=== PATIENT | female | born 1985 | race Caucasian/White ===

== ENCOUNTER 2020-04-28 00:14 | Outpatient (CLI) | payer BC, SELFPAY ==
[2020-04-28 19:24] LABS: SARS-CoV-2 RNA PCR Negative
== END 2020-04-28 00:15 | disposition home or self-care (01) ==
LOC: ANHCOVIDDT 00:14
PROVIDERS: Visit Provider Obstetrics & Gynecology
DX: Z01.812 Encounter for preprocedural laboratory examination (principal); Z20.828 Contact with and (suspected) exposure to other viral communicable diseases
CPT/HCPCS: 87635; C9803; U0003

== ENCOUNTER 2020-05-01 00:54 | Day surgery (SDC) | payer BC, SELFPAY ==
--- NOTE | 2020-04-25 12:07 | PM.IMHP ---
H&P: HPI History of Present Illness Date/Time: 04/25/20 12:07 Chief complaint: Pelvic Pain Narrative: Dottie Elizondo is a 35 year old female who is admitted for diagnostic laparoscopy. She complains of pelvic pain and painful course for the last 2 years. It seems worse with deeper penetration. She had a baby 16 years ago at her 's had a vasectomy. She is taking continuous control for cycle control but she notes that pain continues. She also has pain after intercourse and following a bowel movement. She underwent ultrasound which showed a retroverted uterus with a couple fibroids. Some free fluid is seen. The ovaries appear within normal limits. Risks and benefits of this procedure reviewed including but not exclusive of , aspiration pneumonia, bleeding, transfusion, perforation injury to bowel, bladder, ureters, or other internal organs with need for open laparotomy. She received the ACOG handout entitled laparoscopy. She had all questions answered. She asked to proceed Review of Systems Review of Systems: All systems reviewed & are unremarkable except as noted in HPI and below PMFSH Social History Social History Gender identity (if verbalized by the patient): Female Meds Home Medications and Allergies Home Medications Medication Instructions Recorded Confirmed Type penicillin V potassium 500 mg PO Q12H 10 Days #20 tablet 07/01/19 Rx Allergies Allergy/AdvReac Type Severity Reaction Status Date / Time No Known Allergies Allergy Verified 07/01/19 15:20 Exam Const: General: no acute distress Eyes: General: appearance normal, both eyes and all related structures Neck: Neck: supple and no JVD Thyroid: thyroid normal Resp: Effort & Inspection: normal respiratory effort Auscultation: clear to auscultation bilaterally Cardio: Rate: regular rate Rhythm: regular rhythm GI: Inspection: non-distended GI Palp: Yes Soft to palpation, No Tenderness to palpation present (GI) and No Guarding due to palpation present (GI) Auscultation: normal bowel sounds : General: Yes bladder normal to inspection Speculum Exam - Vagina: normal appearance of the vagina Speculum Exam - Cervix: normal appearance of the cervix Bimanual exam- vagina & uterus: enlarged ( retroverted and extremely tender) Bimanual Exam- Adnexa, other: tender Skin: General skin exam: no rashes or lesions noted Extrem: General: normal to inspection and no edema Psych: Mental Status: mental status grossly normal Affect: normal affect Assessment and Plan Additional Plan impression: Pelvic pain Plan: Diagnostic laparoscopy
[2020-04-25 15:16] VITALS: BMI 20.5
[2020-05-01] VITALS (7 sets, daily range): BP systolic 102–129; BP diastolic 49–78; PULSE 66–87; RESP 14–29; TEMP 36.5–36.6; O2SAT 100
--- NOTE | 2020-05-01 06:46 | WPDHPUPDATE1 ---
History and Physical Update Update Date/Time: 05/01/20 06:46 History and Physical has been reviewed, including an updated exam of the patient. There are NO changes in the patient's condition. Risks, benefits, and alternatives have been discussed and questions answered. Patient agrees to proceed with procedure.
[2020-05-01] MEDS: LACTATED RINGERS 1,000 ML 30 ML IV CONT ×2 (10:05→12:17)
[2020-05-01] MEDS: KETOROLAC 15 MG/ML VIAL (*BKC) IV PUSH (10:29)
[2020-05-01] MEDS: ACETAMINOPHEN 500 MG TABLET 1000 MG PO (10:29)
[2020-05-01] MEDS: ONDANSETRON INJ 4 MG/2 ML VIAL IV PUSH ×2 (10:30→12:50)
[2020-05-01] MEDS: SCOPOLAMINE 1.5 MG PATCH TRANSDERM (10:30)
--- NOTE | 2020-05-01 11:10 | WPDANESEPPF ---
Anes - Initial Pre Proc Eval Procedure: Operation Date: 05/01/20 11:00 Proposed Procedures p Diagnostic Laparoscopy - Jan Mckeon MD Date/Time: 05/01/20 11:10 Surgeon: Jan Mckeon MD Pre Op Diagnosis: Pelvic Pain Patient Data Age: 35 Gender: F Height: 5 ft 5 in Weight: 56.5 kg Last Vital Signs Temp 36.5 C 05/01/20 09:36 Pulse 70 05/01/20 09:36 Resp 16 05/01/20 09:36 BP 114/49 L 05/01/20 09:36 Pulse Ox 100 05/01/20 09:36 Allergies Allergy/AdvReac Type Severity Reaction Status Date / Time No Known Allergies Allergy Verified 05/01/20 09:43 Home Medications Medication Instructions Recorded Confirmed Type norethindrone-e.estradiol-iron 1 tablet PO QAM 04/25/20 05/01/20 History hydrocodone-acetaminophen [[place]] 1 tablet PO Q4H PRN #30 tablet 05/01/20 Rx Patient hx anesthesia problems: post op nausea/vomiting Family hx anesthesia problems: none PMFSH Past Medical History Medical History (Updated 05/01/20 @ 11:13 by Jan Aguilera MD) Anxiety Surgical History Surgical History (Updated 05/01/20 @ 11:13 by Jan Aguilera MD) H/O breast augmentation Social History Social History Smoking status: Never smoker Alcohol intake: current Alcohol use details: FEW DRINKS/MONTH Substance use: never Living arrangements: with family Gender identity (if verbalized by the patient): Female Spiritual care concerns: No Anes - Eval Final PreProcedure Day of Procedure 05/01/20 11:10 Patient weight: normal Heart: regular rate and rhythm Lungs: clear to auscultation Airway: Mallampati scale class II Neurological: alert and oriented Last oral intake: >/= 8 hours ASA classification: II Emergent: no Anesthetic plan: proceed Anesthesia type and monitoring: general ETT and standard monitoring Informed Consent: The patient's anesthetic plan and its attendant risks and benefits were discussed with the patient/family/POA. Questions were solicited and answers provided to the satisfaction of the patient/family/POA.
--- NOTE | 2020-05-01 12:10 | P.OP_ITS ---
Procedure Note - Detailed Date of procedure: 05/01/20 Pre-op diagnosis: Pelvic Pain Surgeon: Jan Mckeon MD Postop diagnosis: Pelvic pain/ endometriosis / pelvic adhesions Procedure: Laparoscopic destruction of endometriosis /lysis of adhesions Anesthesia: General endotracheal EBL: 5cc Findings: Retroverted uterus with marked amount of adhesions from the back of the uterus to the cul-de-sac. Multiple adhesions on each ovary and tube. Small areas of endometriosis in blister formed along the right left uterosacral ligaments. Complications: None Description of procedure: The patient was prepped draped in the normal sterile fashion placed in the dorsal lithotomy position. Under excellent general endotracheal anesthesia weighted speculum was placed in posterior fornix vagina. Anterior lip of the cervix grasped with single-tooth tenaculum and a Mcgee's cannula inserted to the cervix. These were attached to be used later for uterine manipulation. The bladder was emptied of a small amount of clear urine. The gloves were changed after the weighted speculum removed. An infraumbilical incision made in the Veress needle passed in the abdomen. The abdomen was filled with CO2 gas [id number]. The 5mm trocar advanced under direct visualization with the Optiview you in no injury seen. The patient placed in Trendelenburg and a suprapubic incision made the 5mm trocar advanced under direct visualization assuring no injury. Multiple adhesions were seen in left lower quadrant incision made and the 5mm trocar advanced under direct visualization assuring no injury. Multiple adhesions were seen in the areas of endometriosis were seen as well using sharp dissection these adhesions were s harply dissected carefully avoiding injury to vital structures. Irrigation was undertaken until clear. Small areas of endometriosis then could be seen after the uterus was noted be much more mobile and not relieved of the pressure posteriorly making it retroverted to anteverted. The areas of endometriosis were point cauterized at 35 w per 2nd with monopolar cautery. Irrigation was then undertaken clear in areas appeared dry. A portion of Interceed was placed posteriorly under the uterus between the left ovary and tube were then Bovie the adhesions were seen to try to avoid recurrence of the adhesions. The gas removed from the abdomen the upper site removed the incisions closed with 4 O Monocryl and glue. The instruments removed from the vagina. The patient was awakened and went to recovery in satisfactory condition. All sponge, needle, instrument counts were correct. There were no immediate complications
[2020-05-01] MEDS: fentaNYL CITRATE INJ (*CRX) 100 MCG/2 ML VIAL 25 MCG IV PUSH ×3 (12:49→13:04)
--- NOTE | 2020-05-01 15:14 | SUR.PHASEII ---
1410 spouse called the nurses station wanting to know what was taking so lomng for to be discharged. i spoke with him and told him that she was nausea/vomitting and was going to give her medication. he said she didn't want it and that she was ready to be discharged per her text to him. i went and asked her if she wanted any medication and that she was ready to go home, she said yes. i got her paperwork together while she got dressed and discharged her. during the phone call with the he was upset that we as nurses knew this in preop and that she should have medicated better with anti-emetics and that the procedure was taking longer then was scheduled. pt received a substantial amount of anti-emetics per anesthesia.
== END 2020-05-01 14:25 | disposition home or self-care (01) ==
PROVIDERS: PCP Nurse Practitioner Family; Visit Provider Obstetrics & Gynecology
PROC: (CPT 49320; principal; 2020-05-01 11:00)
DX: R10.2 Pelvic and perineal pain (principal); N73.6 Female pelvic peritoneal adhesions (postinfective); N80.3 Endometriosis of pelvic peritoneum
CPT/HCPCS: 58662; 36415; 86850; 86900; 86901; A9270; J0330; J1100; J1200; J1885; J2250; J2405; J2704; J3010; J7120

== ENCOUNTER 2020-06-05 09:03 | Emergency (ER) | payer BC, SELFPAY ==
--- NOTE | ~2020-06-05 | US_ITS ---
EXAMINATION: US pelvic complete w TV EXAM DATE: 06/05/2020 10:13 INDICATION: Right-sided lower quadrant pain, right pelvic pain. Endometriosis. TECHNIQUE: Pelvic transabdominal and transvaginal sonogram was performed. There are multiple graysca le and Doppler images available for interpretation. There is no prior study for comparison. FINDINGS: Uterus measures 9.3 x 5.4 x 4.3 cm, with at least 2 fibroids identified, one measured at 1 .7 cm, another at 1.0 cm. The uterus is retroverted. Endometrial stripe measures 4 mm, within normal limits. There is no free pelvic fluid. Right adnexa: The ovary measures 3.7 x 5.1 x 2.9 cm, with several simple cystic regions, largest reggie uring 4.2 x 3.3 cm. Ovarian vascular flow confirmed. Left adnexa: The ovary measures 1.5 x 1.5 x 1.9 cm and is morphologically normal. Ovarian vascular fl ow confirmed. IMPRESSION: 1. Right ovarian 4.2 cm simple cystic lesion, probably hemorrhagic cyst or dominant follicle. 2. Small fibroids. Reviewed, dictated and finalized at location B. [facility] CLASSER IMPRESSION: 1. Right ovarian 4.2 cm simple cystic lesion, probably hemorrhagic cyst or dom inant follicle. 2. Small fibroids.
[2020-06-05 09:08] VITALS: BP 129/70; PULSE 104; RESP 20; TEMP 36.7; O2SAT 98
--- NOTE | 2020-06-05 09:38 | ED.ABDPAIN ---
HPI - Abdominal Pain General Chief Complaint: Vaginal Bleeding Stated Complaint: vag bleeding Time Seen by Provider: 06/05/20 09:12 Source: patient and family Mode of arrival: ambulatory Limitations: no limitations History of Present Illness HPI narrative: Patient is a 35-year-old female who presents to emergency department for evaluation of vaginal bleeding that occurred this morning patient was having a bowel movement and straining when she began to have bright red blood in the toilet which she noted came from the vagina and has since had some aching pain to the right lower abdomen took ibuprofen around 7:00 with minimal improvement also has had nausea. Patient notes history of endometriosis. Patient is followed by Dr. Johnny Kaufman. Patient presented per private vehicle and has not had anything to eat this morning Related Data Home Medications Medication Instructions Recorded Confirmed norethindrone-e.estradiol-iron 1 tablet PO QAM 04/25/20 05/01/20 Allergies Allergy/AdvReac Type Severity Reaction Status Date / Time narcotics AdvReac Nausea Uncoded 06/05/20 10:08 Review of Systems Review of Systems: All systems reviewed & are unremarkable except as noted in HPI and below PMFSH Past Medical History Medical History Anxiety Surgical History Surgical History H/O breast augmentation Social History Social History Smoking status: Never smoker Alcohol intake: current Substance use: never Gender identity (if verbalized by the patient): Female Spiritual care concerns: No Exam Narrative: Exam Narrative: GENERAL: Well-appearing, well-nourished, and in no acute distress. HEAD: Normocephalic, atraumatic. EYES: PERRLA and EOMI. ENT: Nares clear, no rhinorrhea or epistaxis. Mucous membranes moist. CHEST: Clear to auscultation. No respiratory distress. No wheezes rales or rhonchi HEART: Regular rate and rhythm. No murmur heard. Normal peripheral pulses. ABDOMEN: Soft, nontender, nondistended FEMALE GENITOURINARY: Blood in the vaginal vault which is minimal no active bleeding EXTREMITIES: Normal range of motion. No edema. SKIN: Warm, dry, no rash. NEURO: No focal deficits. Alert and oriented x3. PSYCH: Normal mood and affect. Course Course Emergency Course: Patient in the room at this time in no distress was given fluids and pain medication in the emergency department aware of discussion with gynecology and agrees to follow in clinic in 1 week for further evaluations. Patient is afebrile nontoxic-appearing no distress. ABCs intact vital signs stable. Patient felt appropriate for outpatient reevaluation by her specialist. Consultations Consultation #1: Dr. Townsend INFORMATION OFFICER is aware of case findings treatment plan and diagnosis and would like the patient to follow in clinic in 1 week Date: 06/05/20 Time: 11:08 Vital Signs Vital signs: Vital Signs Temperature 98.1 F 06/05/20 09:08 Pulse Rate 104 H 06/05/20 09:08 Respiratory Rate 20 06/05/20 09:08 Blood Pressure 129/70 06/05/20 09:08 Pulse Oximetry 98 06/05/20 09:08 Temperature 98.1 F 06/05/20 09:08 Pulse Rate 104 H 06/05/20 09:08 Respiratory Rate 20 06/05/20 09:08 Blood Pressure 129/70 06/05/20 09:08 Pulse Oximetry 98 06/05/20 09:08 MDM - Abdominal Pain MDM Narrative Medical decision making narrative: Patient in the room at this time aware of case findings treatment plan and diagnosis likely ovarian cyst hemorrhagic to explain her symptoms given the right sided adnexal discomfort coupled with the bleeding. There were no lacerations or injuries in the vaginal vault evaluated. Patient was given bleeding precautions and reasons to return patient felt appropriate for outpatient reevaluation. . Patient agreeing to follow with gynecology. No high risk changes
[2020-06-05 09:44] LABS: Basophils Percent Auto 0.3 % (0.2-1.2); Eosinophils Absolute Auto 0.1 K/mm3 (0-0.3); Hematocrit 45.1 % (37.0-47.0); Immature Granulocyte Absolute 0.03 K/mm3 (0.00-0.031); Immature Granulocyte Percent A 0.3 % (0-0.5); Lymphocytes Percent Auto 25.6 % (18.3-44.2); Mean Corpuscular HGB Conc 35.5 g/dl (32-36); Mean Corpuscular Hemoglobin 33.3 pg (26-34); Mean Corpuscular Volume 93.8 fl (80-100); Monocytes Absolute Auto 0.8 K/mm3 (0.1-0.6); Monocytes Percent Auto 6.4 % (2.6-8.5); Neutrophils Absolute Auto 7.8 K/mm3 (1.3-6.7); Neutrophils Percent Auto 66.4 % (45.5-73.1); Platelet Count Result 305 k/mm3 (150-375); Red Blood Count 4.81 M/mm3 (4.2-5.4); Red Cell Distribution Width 11.7 % (11.5-14.5); White Blood Count 11.7 K/mm3 (4.5-10.0)
[2020-06-05] MEDS: SODIUM CHLORIDE 0.9% IV 1,000 ML 999 ML IV CONT (09:44)
[2020-06-05 09:56] LABS: Anion Gap 10 mmol/L (8-16); Blood Urea Nitrogen 11 mg/dL (7-17); Calcium 9.6 mg/dL (8.4-10.2); Carbon Dioxide 25 mmol/L (22-30); Chloride 105 mmol/L (98-107); Estimated CRCL calculation 56 ml/min; Estimated Glomerular Filt Rate > 60; Glucose 93 mg/dL (65-105); Potassium 3.9 mmol/L (3.4-5.0); Sodium 140 mmol/L (137-145)
[2020-06-05] MEDS: ONDANSETRON INJ 4 MG/2 ML VIAL IV PUSH (10:28)
[2020-06-05 11:20] VITALS: BP 125/86; PULSE 82; RESP 17; O2SAT 99
== END 2020-06-05 11:22 | disposition home or self-care (01) ==
PROVIDERS: Emergency Medicine Emergency Medical Services; Emergency Provider Emergency Medicine; PCP Nurse Practitioner Family
DX: N93.9 Abnormal uterine and vaginal bleeding, unspecified (principal); N83.201 Unspecified ovarian cyst, right side
CPT/HCPCS: 36415; 76830; 76856; 80048; 81025; 85025; 96361; 96365; 96375; 99284; J0131; J2405; J7030

== ENCOUNTER 2020-06-30 00:23 | Outpatient (CLI) | payer BC, SELFPAY ==
[2020-06-30 17:38] LABS: SARS-CoV-2 RNA PCR Negative
== END 2020-06-30 00:24 | disposition home or self-care (01) ==
LOC: ANHCOVIDDT 00:24
PROVIDERS: PCP Nurse Practitioner Family; Visit Provider Internal Medicine Gastroenterology
DX: Z01.812 Encounter for preprocedural laboratory examination (principal); Z20.822 Contact with and (suspected) exposure to COVID-19
CPT/HCPCS: C9803; U0003; U0005

== ENCOUNTER 2020-07-03 02:04 | Day surgery (SDC) | payer BC, SELFPAY ==
[2020-06-26 10:01] VITALS: BMI 24.5
[2020-07-03 08:43] VITALS: BP 128/71; PULSE 98; RESP 16; TEMP 36.8; O2SAT 97; BMI 23.4
[2020-07-03] MEDS: LACTATED RINGERS 1,000 ML 150 ML IV CONT (08:52)
--- NOTE | 2020-07-03 08:54 | WPDANESEPPF ---
Anes - Initial Pre Proc Eval Procedure: Operation Date: 07/03/20 09:30 Proposed Procedures p Colonoscopy - Stewart Santana MD Date/Time: 07/03/20 08:54 Surgeon: Stewart Santana MD Pre Op Diagnosis: constipation Patient Data Age: 35 Gender: F Height: 1.52 m Weight: 54.4 kg Last Vital Signs Temp 36.8 C 07/03/20 08:43 Pulse 98 07/03/20 08:43 Resp 16 07/03/20 08:43 BP 128/71 07/03/20 08:43 Pulse Ox 97 07/03/20 08:43 Allergies Allergy/AdvReac Type Severity Reaction Status Date / Time narcotics AdvReac Severe Nausea Uncoded 07/03/20 08:42 Home Medications Medication Instructions Recorded Confirmed Type norethindrone-e.estradiol-iron 1 tablet PO QAM 04/25/20 07/03/20 History Patient hx anesthesia problems: none Family hx anesthesia problems: none PMFSH Past Medical History Medical History (Updated 06/13/20 @ 11:48 by KHARI Al[place]) Anxiety Chronic rectal pain Constipation Endometriosis determined by laparoscopy Surgical History Surgical History H/O breast augmentation Social History Social History Smoking status: Never smoker Alcohol intake: never Substance use: never Substance use type: does not use Living arrangements: with family Gender identity (if verbalized by the patient): Female Spiritual care concerns: No Anes - Eval Final PreProcedure Day of Procedure 07/03/20 08:54 Patient weight: normal Heart: regular rate and rhythm Lungs: clear to auscultation and normal air movement Airway: Mallampati scale class 1 Neurological: alert and oriented Last oral intake: >/= 8 hours ASA classification: II Emergent: no Anesthetic plan: proceed Anesthesia type and monitoring: general GIVS and standard monitoring Informed Consent: The patient's anesthetic plan and its attendant risks and benefits were discussed with the patient/family/POA. Questions were solicited and answers provided to the satisfaction of the patient/family/POA.
--- NOTE | 2020-07-03 09:05 | WPDHPUPDATE1 ---
History and Physical Update Update Date/Time: 07/03/20 09:05 History and Physical has been reviewed, including an updated exam of the patient. There are NO changes in the patient's condition. Risks, benefits, and alternatives have been discussed and questions answered. Patient agrees to proceed with procedure.
[2020-07-03 09:31] VITALS: BP 171/85; PULSE 102; RESP 28; O2SAT 100
[2020-07-03 09:41] VITALS: BP 116/76; PULSE 85; RESP 24; O2SAT 100
[2020-07-03 09:51] VITALS: BP 125/61; PULSE 82; RESP 27; O2SAT 100
== END 2020-07-03 10:00 | disposition home or self-care (01) ==
PROVIDERS: PCP Nurse Practitioner Family; Visit Provider Internal Medicine Gastroenterology
PROC: 0DJD8ZZ Inspection of Lower Intestinal Tract, Via Natural or Artificial Opening Endoscopic (ICD-10-PCS; CPT 45378; principal; 2020-07-03 09:30)
DX: K62.89 Other specified diseases of anus and rectum (principal); D12.3 Benign neoplasm of transverse colon; D12.5 Benign neoplasm of sigmoid colon; K59.00 Constipation, unspecified; R10.2 Pelvic and perineal pain; G89.29 Other chronic pain; F41.9 Anxiety disorder, unspecified; N80.9 Endometriosis, unspecified; N83.209 Unspecified ovarian cyst, unspecified side
CPT/HCPCS: 45385; 45380; 88305; J2704; J7120

== ENCOUNTER 2020-07-04 01:34 | Outpatient (CLI) | payer BC, SELFPAY ==
[2020-07-04 18:12] LABS: SARS-CoV-2 RNA PCR Negative
== END 2020-07-04 01:35 | disposition home or self-care (01) ==
LOC: ANHCOVIDDT 01:34
PROVIDERS: PCP Nurse Practitioner Family; Visit Provider Obstetrics & Gynecology
DX: Z01.812 Encounter for preprocedural laboratory examination (principal); Z20.822 Contact with and (suspected) exposure to COVID-19
CPT/HCPCS: C9803; U0003; U0005

== ENCOUNTER 2020-07-04 12:29 | Outpatient (CLI) | payer BC, SELFPAY | END 2020-07-04 12:30 | disposition home or self-care (01) | LOC: ANHSURGERY 12:33 | PROVIDERS: PCP Nurse Practitioner Family; Visit Provider Obstetrics & Gynecology | DX: Z01.812 Encounter for preprocedural laboratory examination (principal); N80.9 Endometriosis, unspecified | CPT/HCPCS: 36415; 86850; 86900; 86901 ==

== ENCOUNTER 2020-07-07 00:54 | Day surgery (SDC) | payer BC, SELFPAY ==
[2020-07-03 14:34] VITALS: BMI 23.4
--- NOTE | 2020-07-04 15:30 | P.HP_ITS ---
H&P: HPI History of Present Illness Date/Time: 07/04/20 15:30 Chief Complaint: pain Narrative: Dottie Elizondo is a 35 year old female is admitted for robotic hysterectomy and bilateral salpingectomy with po ssible right salpingo-oophorectomy. She has a history of severe endometriosis. She has a history of abnormal Pap. She has pain discomfort and dyspareunia like to have this includes [place] she has finished having children. Risks and benefits were reviewed including but not exclusive of , aspiration pneumonia, bleeding, transfusion, infection, perforation to bowel, bladder, ureters, or other internal organs with need for open laparotomy. She voiced good understanding and all questions answered. She received the ACOG handout entitled hysterectomy as well as a G handout and asked to proceed Review of Systems Review of Systems: All systems reviewed & are unremarkable except as noted in HPI and below PMFSH Past Medical History Medical History Anxiety Chronic rectal pain Constipation Endometriosis determined by laparoscopy Surgical History Surgical History H/O breast augmentation Social History Social History Smoking status: Never smoker Alcohol intake: never Substance use: never Substance use type: does not use Gender identity (if verbalized by the patient): Female Spiritual care concerns: No Meds Home Medications and Allergies Home Medications Medication Instructions Recorded Confirmed Type norethindrone-e.estradiol-iron 1 tablet PO QAM 04/25/20 07/03/20 History Allergies Allergy/AdvReac Type Severity Reaction Status Date / Time narcotics AdvReac Severe Nausea Uncoded 07/03/20 14:33 Exam Const: General: no acute distress Eyes: General: appearance normal, both eyes and all related structures Neck: Neck: supple and no JVD Thyroid: thyroid normal Resp: Effort & Inspection: normal respiratory effort Auscultation: clear to auscultation bilaterally Cardio: Rate: regular rate Rhythm: regular rhythm GI: Inspection: non-distended GI Palp: Yes Soft to palpation, No Tenderness to palpation present (GI) and No Guarding due to palpation present (GI) Auscultation: normal bowel sounds : General: Yes bladder normal to inspection External Female Exam: normal external appearance Speculum Exam - Vagina: normal appearance of the vagina Bimanual exam- vagina & uterus: Cervical tenderness present and enlarged Bimanual Exam- Adnexa, other: tender Skin: General skin exam: no rashes or lesions noted Extrem: General: normal to inspection and no edema Psych: Mental Status: mental status grossly normal Affect: normal affect Assessment and Plan Additional Plan impression: Chronic pelvic pain Plan: Robotic total vaginal hysterectomy possible right salpingo-oophorectomy and left salpingectomy her
--- NOTE | 2020-07-05 15:49 | WPDANESEPPF ---
Anes - Initial Pre Proc Eval Procedure: Operation Date: 07/07/20 07:30 Proposed Procedures p Robotic Assisted Total Hysterectomy, Left Salpingectomy, Possible Right Salpingo Oophorectomy - Jan Mckeon MD Date/Time: 07/05/20 15:49 Surgeon: Jan Mckeon MD Pre Op Diagnosis: pain, endometriosis, fibroids, enlarged uterus Patient Data Age: 35 Gender: F Height: 1.52 m Weight: 54.5 kg Allergies Allergy/AdvReac Type Severity Reaction Status Date / Time narcotics AdvReac Intermediate Nausea Uncoded 07/07/20 06:40 Home Medications Medication Instructions Recorded Confirmed Type norethindrone-e.estradiol-iron 1 tablet PO QAM 04/25/20 07/07/20 History hydrocodone-acetaminophen [[place]] 1 tablet PO Q4H PRN #30 tablet 07/07/20 Rx Patient hx anesthesia problems: post op nausea/vomiting Family hx anesthesia problems: none PMFSH Past Medical History Medical History Anxiety Chronic rectal pain Constipation Endometriosis determined by laparoscopy Surgical History Surgical History H/O breast augmentation Social History Social History Smoking status: Never smoker Alcohol intake: never Substance use: never Substance use type: does not use Gender identity (if verbalized by the patient): Female Spiritual care concerns: No Anes - Eval Final PreProcedure Day of Procedure 07/05/20 15:49 Patient weight: normal Heart: regular rate and rhythm Lungs: clear to auscultation and normal air movement Airway: Mallampati scale class 1 Neurological: alert and oriented Last oral intake: >/= 8 hours ASA classification: II Emergent: no Anesthetic plan: proceed Anesthesia type and monitoring: general ETT and standard monitoring Informed Consent: The patient's anesthetic plan and its attendant risks and benefits were discussed with the patient/family/POA. Questions were solicited and answers provided to the satisfaction of the patient/family/POA.
[2020-07-07] VITALS (15 sets, daily range): BP systolic 100–138; BP diastolic 56–97; PULSE 57–102; RESP 12–22; TEMP 36.5–37.1; O2SAT 95–100
--- NOTE | 2020-07-07 06:34 | WPDHPUPDATE1 ---
History and Physical Update Update Date/Time: 07/07/20 06:34 History and Physical has been reviewed, including an updated exam of the patient. There are NO changes in the patient's condition. Risks, benefits, and alternatives have been discussed and questions answered. Patient agrees to proceed with procedure.
[2020-07-07] MEDS: LACTATED RINGERS 1,000 ML 30 ML IV CONT ×2 (07:14→08:51)
[2020-07-07] MEDS: FAMOTIDINE 20 MG/2 ML VIAL IV PUSH (07:15)
[2020-07-07] MEDS: KETOROLAC 15 MG/ML VIAL (*BKC) IV PUSH (07:15)
[2020-07-07] MEDS: SCOPOLAMINE 1.5 MG PATCH TRANSDERM (07:15)
[2020-07-07] MEDS: ACETAMINOPHEN 500 MG TABLET 1000 MG PO (07:15)
[2020-07-07] MEDS: ceFAZolin 2 GM/D5W 50 ML 2 GM/50 ML BAG IVPB (07:44)
--- NOTE | 2020-07-07 08:28 | SUR.OPER ---
Ebl=25ml
--- NOTE | 2020-07-07 08:40 | P.OP_ITS ---
Procedure Note - Detailed Date of procedure: 07/07/20 Pre-op diagnosis: pain, endometriosis, fibroids, enlarged uterus Surgeon: Jan Mckeon MD Postop diagnosis: Pelvic pain/enlarged uterus with fibroids/complex right ovarian cyst Procedure: Loop robotic total vaginal hysterectomy/left salpingectomy/right salpingo-oophorectomy Anesthesia: General endotracheal EBL: 25cc Complications: None Findings: Enlarged fibroid uterus. Complex right tubo-ovarian complex. Normal-appearing left ovary with mild scar tissue Description of procedure: The patient was prepped draped in the normal sterile fashion placed in the dorsal lithotomy position. Under excellent general endotracheal anesthesia weighted speculum placed in posterior fornix of vagina. The anterior lip of the cervix was grasped with a single-tooth tenaculum. The uterus sounded to 10cm. Serial dilatation with fragmented dilators performed followed by passes the 8. KAITLYN and the 3. And half cold cup. Next the 16 [place] catheter was placed and drained of clear urine. The weighted speculum was removed and the gloves were changed. A supraumbilical incision was made and the Veress needle passed in the abdomen. Abdomen was filled with CO2 gas [id number]. The 8mm trocar was advanced in the abdomen and downside visualized. No injury seen. The left and right lower quadrant incisions were made and the 8mm trocars advanced under direct visualization. A right upper quadrant incision made in the 8mm trocar advanced under direct visualization the robot was docked. Attention was turned to the console. The left ovary was somewhat adherent to the left ovarian fossa. This was easily freed by sharply dissecting the scar tissue. The left tube appeared within normal limits. The uterus was markedly enlarged and appeared to be encased in fibroids. The right ovary was markedly adherent to the posterior surface of the uterus. This was sharply dissected away from the posterior surface of the uterus and the ovarian fossa. The left round ligament was grasped, burned, cut. Anteriorly a bladder flap was formed by sharply dissecting this and reflecting it caudally from the uterus and cervix to the opposite round ligament which was clamped, burned, cut. The left tube was sharply dissected away from the ovarian complex and left to be taken with the uterine specimen. The right infundibulopelvic structure was skeletonized. This was serially clamped, burned, cut. And brought to the level of the previously cut round ligament. Next the cardinal and broad ligaments on the left were serially skeletonized and sharply dissected the clamping burning and cutting. This was somewhat thickened due to the scar tissue that was present. When the uterine vessels on the left could be seen there were individually clamped, burned, cut. In like fashion the cardinal and broad ligaments on the right were serially skeletonized. These were clamped, burned, cut and brought down the lateral edge of the uterus to the uterine vessels. These were individually clamped, burned, cut. Blanching of the uterus was seen and a colp otomy incision was made. The uterus cervix tubes and right ovary removed through the vagina. The vagina closed with continuous running 0V lock from lateral edge to lateral edge and back to the midline. Irrigation was undertaken until clear the raw surface areas were sprinkled with [place] term. Hemostasis was assured the robot was undocked. The gas removed from the abdomen. The incisions closed with 4 O Monocryl and glue. The patient was awakened. She went to recovery in satisfactory condition. All sponge, needle, instrument counts were correct. There were no immediate complications
[2020-07-07] MEDS: fentaNYL CITRATE INJ (*CRX) 100 MCG/2 ML VIAL 25 MCG IV PUSH ×7 (09:10→09:43)
[2020-07-07] MEDS: DEXTROSE 5%/LACTATED RINGERS 1,000 ML 125 ML IV CONT ×2 (10:46→19:10)
--- NOTE | 2020-07-07 10:51 | ADMGEN ---
This patient, Dottie Elizondo, was admitted to OB 2nd Floor Room 278-00. Patient oriented to hospital policies and general routines including ID bracelet, bed and alarms, visiting hours, pain management, procedures, bathroom and other care routines, personal items, smoking policy, room service/diet, and visiting hours. Information on how to activate the Rapid Response Team has been discussed. Patient/Family are encouraged to report perceived risks to care and to ask questions if they do not understand what they are told or what they should do.
[2020-07-07] MEDS: KETOROLAC 30 MG/ML VIAL (*BKC) IV PUSH ×2 (13:11→19:08)
[2020-07-07] MEDS: ONDANSETRON INJ 4 MG/2 ML VIAL IV PUSH (16:45)
[2020-07-08] VITALS: BP 112/60; PULSE 57; RESP 16; TEMP 36.9; O2SAT 100
[2020-07-08] MEDS: KETOROLAC 30 MG/ML VIAL (*BKC) IV PUSH (02:09)
[2020-07-08 04:00] VITALS: BP 119/63; PULSE 62; RESP 16; TEMP 36.7; O2SAT 100
[2020-07-08 05:17] LABS: Basophils Percent Auto 0.1 % (0.2-1.2); Eosinophils Percent Auto 0.2 % (0-4.4); Hematocrit 31.8 % (37.0-47.0); Hemoglobin 11.1 g/dL (12.0-15.0); Immature Granulocyte Absolute 0.05 K/mm3 (0.00-0.031); Immature Granulocyte Percent A 0.5 % (0-0.5); Lymphocytes Absolute Auto 2.92 K/mm3 (0.9-3.2); Lymphocytes Percent Auto 26.4 % (18.3-44.2); Mean Corpuscular HGB Conc 34.9 g/dl (32-36); Mean Corpuscular Hemoglobin 32.9 pg (26-34); Mean Corpuscular Volume 94.4 fl (80-100); Mean Platelet Volume 10.5 fl (7.4-10.4); Monocytes Absolute Auto 0.8 K/mm3 (0.1-0.6); Monocytes Percent Auto 6.9 % (2.6-8.5); Neutrophils Absolute Auto 7.3 K/mm3 (1.3-6.7); Neutrophils Percent Auto 65.9 % (45.5-73.1); Platelet Count Result 176 k/mm3 (150-375); Red Blood Count 3.37 M/mm3 (4.2-5.4); Red Cell Distribution Width 11.9 % (11.5-14.5); White Blood Count 11.1 K/mm3 (4.5-10.0)
[2020-07-08 06:52] VITALS: BP 122/52; PULSE 70; RESP 16; TEMP 36.8
--- NOTE | 2020-07-08 07:00 | P.DS_ITS ---
DS: Admitting Diagnosis Admitting Diagnosis Admitting Diagnosis: bleeding pain enlarged uterus DS: Summary Hospital Course Reason for hospitalization: ratvh/bilat salpingectomies Hospital Course: the patient was admitted for robotic total vaginal hysterectomy and bilateral salpingectomy. The procedure was unremarkable with minimal blood loss. She remained afebrile. She was up, voiding without difficulty, group bleeding was negligible. Ambulating and generally without complaints. Time Spent with Patient Time attestation: Total time spent providing and/or coordinating discharge services: Exam Const: General: no acute distress Eyes: General: appearance normal, both eyes and all related structures Neck: Neck: supple and no JVD Thyroid: thyroid normal Resp: Effort & Inspection: normal respiratory effort Auscultation: clear to auscultation bilaterally Cardio: Rate: regular rate Rhythm: regular rhythm GI: Inspection: non-distended GI Palp: Yes Soft to palpation, No Tenderness to palpation present (GI) and No Guarding due to palpation present (GI) Auscultation: normal bowel sounds : General: Yes bladder normal to palpation External Female Exam: normal external appearance Speculum Exam - Vagina: normal vaginal discharge and No vaginal bleeding Speculum Exam - Cervix: nontender Bimanual exam- vagina & uterus: bladder normal to palpation and No Cervical tenderness present OB/external & speculum: No vaginal bleeding Skin: General skin exam: no rashes or lesions noted Extrem: General: normal to inspection and no edema Psych: Mental Status: mental status grossly normal Affect: normal affect DS: Data Data Completed and Pending Pending studies at discharge: Pending at discharge 07/07/20 08:18 Surgical [PTH] Routine Labs on day of discharge: Labs from last 24 hours 07/08/20 04:31 WBC 11.1 H RBC 3.37 L Hgb 11.1 L D Hct 31.8 L MCV 94.4 MCH 32.9 MCHC 34.9 RDW 11.9 Plt Count 176 MPV 10.5 H Immature Gran % (Auto) 0.5 Neut % (Auto) 65.9 Lymph % (Auto) 26.4 [place] % (Auto) 6.9 Eos % (Auto) 0.2 Baso % (Auto) 0.1 L Lymph # (Auto) 2.92 [place] # (Auto) 0.8 H Eos # (Auto) 0.0 Baso # (Auto) 0.0 Abs Immat Gran (auto) 0.05 H Absolute Neuts (auto) 7.3 H Absolute Nucleated RBC 0.0 Nucleated RBC % 0.0 Discharge Plan Discharge Attending physician on discharge: Jan Mckeon Discharging Clinician: Jan Mckeon Patient Disposition: Home, Self-Care Activity: may shower, no straining, may drive after 2 weeks and pelvic rest Diet: heart healthy Wound Care Instructions: follow printed instructions Stand Alone Forms: General Discharge Instructions Follow-up/Referrals: Jan Mckeon MD [Physician] - Discharge Medications: New hydrocodone-acetaminophen [[place]] 5-325 mg tablet 1 tablet PO Q4H PRN (Reason: pain) Qty: 30 RF: 0 Continued norethindrone-e.estradiol-iron 1 mg-20 mcg(24) /75 mg (4) tablet,chewable 1 tablet PO QAM RF: 0 Attending physician on admission: Jan Mckeon Condition: Stable
--- NOTE | 2020-07-08 07:03 | P.PNOB_ITS ---
OB - PN: Subj Subjective Date/time seen: 07/08/20 07:03 Patient comments: no complaints and pain well controlled OB - PN: Obj Data Labs CBC & Chem 7: 07/08/20 04:31 Labs: Laboratory Results - last 24 hr 07/08/20 04:31 WBC 11.1 H RBC 3.37 L Hgb 11.1 L D Hct 31.8 L MCV 94.4 MCH 32.9 MCHC 34.9 RDW 11.9 Plt Count 176 MPV 10.5 H Immature Gran % (Auto) 0.5 Neut % (Auto) 65.9 Lymph % (Auto) 26.4 [place] % (Auto) 6.9 Eos % (Auto) 0.2 Baso % (Auto) 0.1 L Lymph # (Auto) 2.92 [place] # (Auto) 0.8 H Eos # (Auto) 0.0 Baso # (Auto) 0.0 Abs Immat Gran (auto) 0.05 H Absolute Neuts (auto) 7.3 H Absolute Nucleated RBC 0.0 Nucleated RBC % 0.0 OB - PN A/P Plan day: 1 Plan: discharge home and follow up 6 weeks (2 weeks) Time Spent With Patient Time: Total time spent is greater than 50% in coordination of care (as documented) at patient's floor/unit and/or counseling patient: Time with patient: less than 15 minutes Review of Systems Review of Systems: All systems reviewed & are unremarkable except as noted in HPI and below Exam Const: General: well developed Eyes: General: appearance normal, both eyes and all related structures Neck: Neck: supple and no JVD Thyroid: thyroid normal Resp: Effort & Inspection: normal respiratory effort Auscultation: clear to auscultation bilaterally Cardio: Rate: regular rate Rhythm: regular rhythm GI: Inspection: non-distended GI Palp: Yes Soft to palpation, No Tenderness to palpation present (GI) and No Guarding due to palpation present (GI) Percussion: Yes normal to percussion Auscultation: normal bowel sounds and other (wounds cdi) Skin: General skin exam: no rashes or lesions noted Extrem: General: normal to inspection and no edema Psych: Mental Status: mental status grossly normal Affect: normal affect
[2020-07-08] MEDS: DOCUSATE SODIUM 100 MG CAPSULE PO (09:08)
[2020-07-08] MEDS: IBUPROFEN 600 MG TABLET PO (09:08)
[2020-07-08] MEDS: ENOXAPARIN 40 MG/0.4 ML SYRINGE SUB-Q (09:09)
== END 2020-07-08 09:22 | disposition home or self-care (01) ==
LOC: ANHSURGERY 06:17 → ANHOB2 10:34
PROVIDERS: PCP Nurse Practitioner Family; Visit Provider Obstetrics & Gynecology
PROC: (CPT 58552; principal; 2020-07-07 07:30)
DX: N80.0 Endometriosis of uterus (principal); N83.01 Follicular cyst of right ovary; F41.9 Anxiety disorder, unspecified; D25.1 Intramural leiomyoma of uterus; N73.6 Female pelvic peritoneal adhesions (postinfective)
CPT/HCPCS: 58552; S2900; 36415; 85025; 88307; 99199; A9270; J0690; J1100; J1170; J1650; J1885; J2250; J2405; J2704; J2710; J3010; J7030; J7120; J7121

== ENCOUNTER 2021-01-26 10:20 | Emergency (ER) | payer BC, SELFPAY ==
[2021-01-26 10:33] VITALS: BP 114/53; PULSE 85; RESP 18; TEMP 37.3; O2SAT 99
--- NOTE | 2021-01-26 11:01 | ED.SKABFB ---
HPI - Skin/Abscess/Foreign Bdy General Chief complaint: Skin/Abscess/Foreign Body Stated complaint: Rash to chest and arms Time Seen by Provider: 01/26/21 10:50 Source: patient Mode of arrival: ambulatory Limitations: no limitations History of Present Illness HPI narrative: Dottie Elizondo is a 35 y female with a PMH of restless leg syndrome here with a rash all over her hands legs trunk and face from unknown source that started 2 days ago. She had deep cleaning her dentist and on the first day in the afternoon she started to develop some hives on her face she had a second deep cleaning the next day and after that she broke out all over. She is change no detergent soaps or any things in her environment so it is suspected that something that is used during cleaning and she is to talk to dental office about whether the use antibiotics during the procedure Related Data Home Medications Medication Instructions Recorded Confirmed ropinirole 1 mg PO DAILY 01/26/21 01/26/21 Allergies Allergy/AdvReac Type Severity Reaction Status Date / Time narcotics AdvReac Intermediate Nausea Uncoded 01/26/21 10:37 Review of Systems Review of Systems: CONSTITUTIONAL: Denies fever, chills, sweats. EYES: Denies visual changes, redness, discharge. ENT: Denies rhinorrhea, congestion, sore throat, otalgia. CARDIOVASCULAR: Denies chest pain, palpitations, edema. RESPIRATORY: Denies dyspnea, wheezing, cough GASTROINTESTINAL: Denies abdominal pain, nausea, vomiting, diarrhea. GENITOURINARY: Denies dysuria, hematuria, abnormal discharge SKIN: Rash all over torso and face and extremities NEUROLOGIC: Denies numbness, or focal weakness. PSYCHIATRIC: Denies anxiety or depression. [facility] Past Medical History Medical History Anxiety Chronic rectal pain Constipation Endometriosis determined by laparoscopy Restless legs syndrome Surgical History Surgical History H/O breast augmentation Family History Family History Other Hypertension Social History Social History (Updated 01/26/21 @ 11:26 by Toshia Maya CNP) Smoking status: Never smoker Alcohol intake: current Alcohol use details: FEW DRINKS/MONTH Substance use: never Substance use type: does not use Gender identity (if verbalized by the patient): Female Spiritual care concerns: No Comments At time of signature, I agree with nursing past medical, surgical, social and family history. There is no relevant family history pertinent to the presenting complaint. Exam Narrative: GENERAL: This is a well-nourished, well-developed patient, in mild distress. HEAD: normocephalic, atraumatic. EYES: Sclera clear/white. Vision is grossly intact. EARS: External ears normal, Hearing grossly intact. NOSE: External nose normal without nasal discharge, nares without redness, no rhinorrhea. THROAT: Mucous membranes moist, posterior pharynx no blisters or ulcers in the mouth NECK: Neck supple, non-tender CARDIOVASCULAR: Regular rate and rhythm without murmurs, gallops, or rubs. RESPIRATORY: Clear to auscultation. Breath sounds equal bilaterally. No wheezes, rales, or rhonchi. GASTROINTESTINAL: Abdomen soft, SKIN: warm, intact with raised , red papular rash all over her torso arms legs and face, pruritic, NEURO: awake, alert, and oriented to person, place and time. There were no obvious focal neurologic abnormalities. Steady gait EXTREMITIES: Normal range of motion. BACK: Nontender without deformity Course Course Emergency Course: Patient comes to [facility] with 2 days of rash all over torso and face and extremities, unknown etiology although had dental cleaning 2 days for 2 days prior to the one rash Given Solu-Medrol here-patient developed a reaction to the Solu-Medrol with diaphoresis and nausea but was give
[2021-01-26] MEDS: methylPREDNISolone SOD SUCC 125 MG VIAL 80 MG IM (11:10)
[2021-01-26] MEDS: ONDANSETRON HCL ODT 4 MG TABLET PO (11:16)
[2021-01-26 11:17] VITALS: BP 121/68; PULSE 64; O2SAT 100
--- NOTE | 2021-01-26 11:25 | PC.NURSE ---
1116-Called to pt room. Pt feeling nauseated, diaphoretic and pale. Cool washcloth given. Zofran ordered and given. VSS.
--- NOTE | 2021-01-26 11:27 | PC.NURSE ---
1118-Pt feeling better. Color returning. Nausea improving. Will continue to monitor. 1124-Pt feels much better. Nausea resolved, color returned to normal.
== END 2021-01-26 11:41 | disposition home or self-care (01) ==
PROVIDERS: Emergency Provider Nurse Practitioner; PCP Nurse Practitioner Family
DX: L50.9 Urticaria, unspecified (principal); T78.40XA Allergy, unspecified, initial encounter; N80.9 Endometriosis, unspecified; G25.81 Restless legs syndrome
CPT/HCPCS: 96372; 99213; A9270; G0463; J2930

== ENCOUNTER 2021-02-26 14:25 | Outpatient (CLI) | payer BC, SELFPAY ==
--- NOTE | ~2021-02-26 | CT_ITS ---
EXAMINATION: CT abdomen pelvis w con DATE: 02/26/2021 14:46 INDICATION: Right lower quadrant and pelvic pain. TECHNIQUE: Computed tomography (CT) of the abdomen and pelvis was performed with 100 cc Omnipaque 350 intravenous contrast. The dose-length product was 201.00 mGy-cm. Automated exposure control and iter ative reconstruction technique were employed. COMPARISON: None. FINDINGS: Lung bases are unremarkable. Heart size normal. There are breast implants. No significant p leural or pericardial effusion. Calcified granuloma right lung base. There is a low-density lesion in the left kidney, most likely benign cysts. The liver, spleen, pancreas, adrenal glands and right kidney are unremarkable. Nonobstructive bowel g as pattern. Normal appendix. There is a 2.1 cm corpus luteal cyst of the left ovary. Trace free fluid in the left adnexa. No significant vascular abnormality. No lymphadenopathy. IMPRESSION: 1. Corpus luteal cyst of the left ovary measuring 2.1 cm with trace free fluid in the adnexa. Reviewed, dictated and finalized at location A.
== END 2021-02-26 14:26 | disposition home or self-care (01) ==
LOC: ANHIMG 14:30
PROVIDERS: PCP Nurse Practitioner Family; Visit Provider Obstetrics & Gynecology
DX: R10.2 Pelvic and perineal pain (principal); N83.12 Corpus luteum cyst of left ovary
CPT/HCPCS: 74177; Q9967

== ENCOUNTER 2021-08-07 11:02 | Outpatient (CLI) | payer BC, SELFPAY ==
--- NOTE | ~2021-08-07 | US_ITS ---
EXAMINATION: US pelvic complete EXAM DATE: 08/07/2021 11:27 INDICATION: Left lower quadrant pain. TECHNIQUE: Pelvic transabdominal complete sonogram was performed. There are multiple grayscale and D oppler images available for interpretation. There is no prior study for comparison. FINDINGS: Uterus and right ovary reportedly have been removed. Left adnexal region is unremarkable, n o mass identified in this location. Cannot specifically identify left ovary. Bladder is unremarkable. IMPRESSION: Uterus, ovaries not identified. Reviewed, dictated and finalized at location G. WARE CLERK
== END 2021-08-07 11:03 | disposition home or self-care (01) ==
PROVIDERS: PCP Nurse Practitioner Family; Visit Provider Obstetrics & Gynecology
DX: R10.32 Left lower quadrant pain (principal)
CPT/HCPCS: 76856

== ENCOUNTER 2021-09-03 17:22 | Emergency (ER) | payer BC, SELFPAY ==
[2021-09-03 17:39] VITALS: BP 135/63; PULSE 78; RESP 14; TEMP 36.5; O2SAT 100
--- NOTE | 2021-09-03 17:40 | ECG_ITS ---
Measurements Intervals [place] Rate: 72 P: 19 NV: 134 QRS: 54 QRSD: 68 T: 65 QT: 369 QTc: 404 Interpretive Statements SINUS RHYTHM CANNOT RULE OUT PREVIOUS SEPTAL SD, PROBABLY LEAD POSITION OTHERWISE UNREMARKABLE ECG NO PREVIOUS ECG AVAILABLE FOR COMPARISON Electronically Signed On 09-04-2021 17:06:20 CDT by Wilbert Bello M.D.
[2021-09-03 17:56] LABS: Basophils Percent Auto 0.3 % (0.2-1.2); Eosinophils Absolute Auto 0.1 K/mm3 (0-0.3); Eosinophils Percent Auto 0.7 % (0-4.4); Hematocrit 42.3 % (37.0-47.0); Immature Granulocyte Absolute 0.02 K/mm3 (0.00-0.031); Immature Granulocyte Percent A 0.3 % (0-0.5); Lymphocytes Absolute Auto 2.84 K/mm3 (0.9-3.2); Lymphocytes Percent Auto 37.1 % (18.3-44.2); Mean Corpuscular HGB Conc 35.5 g/dl (32-36); Mean Corpuscular Hemoglobin 33.5 pg (26-34); Mean Corpuscular Volume 94.4 fl (80-100); Monocytes Absolute Auto 0.5 K/mm3 (0.1-0.6); Monocytes Percent Auto 6.5 % (2.6-8.5); Neutrophils Absolute Auto 4.2 K/mm3 (1.3-6.7); Neutrophils Percent Auto 55.1 % (45.5-73.1); Platelet Count Result 246 k/mm3 (150-375); Red Blood Count 4.48 M/mm3 (4.2-5.4); Red Cell Distribution Width 11.4 % (11.5-14.5); White Blood Count 7.7 K/mm3 (4.5-10.0)
[2021-09-03 18:11] LABS: Alanine Aminotransferase 13 U/L (4-35); Alkaline Phosphatase 39 U/L (38-126); Anion Gap 8 mmol/L (8-16); Aspartate Amino Transferase 21 U/L (14-36); Bilirubin,Total 0.5 mg/dL (0.2-1.3); Blood Urea Nitrogen 8 mg/dL (7-17); Calcium 9.6 mg/dL (8.4-10.2); Carbon Dioxide 28 mmol/L (22-30); Chloride 103 mmol/L (98-107); Estimated CRCL calculation 69 ml/min; Estimated Glomerular Filt Rate > 60; Glucose 90 mg/dL (65-110); Lipase 112 U/L (23-300); Potassium 3.9 mmol/L (3.4-5.0); Sodium 139 mmol/L (137-145)
[2021-09-03 19:24] LABS: Add Urine Microscopic? YES; Appearance Urine Cloudy (Clear); Bacteria Urine Trace /hpf; Bilirubin Urine Negative (Negative); Blood Urine Negative (Negative); Color Urine Yellow (Yellow); Glucose Urine UA Negative (Negative); Ketones Urine Negative (Negative); Leukocyte Esterase Ur Negative LEU/UL (Negative); Nitrate Urine Negative (Negative); Protein Urine Negative (Negative); RBC Urine 0-2 /hpf (0-2); Specific Grav Ur 1.005 (1.001-1.035); Squamous Epithelial Cell Urine Few /hpf (Few); Urobilinogen Urine Negative mg/dL (<2.0); WBC Urine 0-3 /hpf
--- NOTE | 2021-09-03 19:37 | PC.NURSE ---
First call for pt to come to a room at 1936. No answer.
--- NOTE | 2021-09-03 20:32 | PC.NURSE ---
Second call for pt at this time with no answer. Removed from triage list.
== END 2021-09-03 20:36 | disposition left against medical advice (07) ==
LOC: ANHED 20:36
PROVIDERS: Emergency Provider Emergency Medicine; PCP Nurse Practitioner Family
DX: R10.11 Right upper quadrant pain (principal)
CPT/HCPCS: 36415; 80053; 81001; 81025; 83690; 85025; 93005; 99199